=== PATIENT | female | born 1985 | race American Indian/Alaskan Native ===

== ENCOUNTER 2018-12-21 23:30 | Emergency (ER) | payer BC ==
[2018-12-21] MEDS ORDERED: ASPIRIN PO ONE (23:43)
--- NOTE | 2018-12-22 00:19 | XRay Report ---
CHEST 1 VIEW INDICATION / CLINICAL INFORMATION: Chest Pain. COMPARISON: None available. FINDINGS: SUPPORT DEVICES: None. HEART / MEDIASTINUM: No significant abnormality. LUNGS / PLEURA: No significant pulmonary or pleural abnormality. No pneumothorax. ADDITIONAL FINDINGS: No significant additional findings. IMPRESSION: 1. No acute findings. Signer Name: Jace Doan MD Signed: 12/22/2018 12:15 AM Workstation Name: [id number]
[2018-12-22 00:54] LABS: BUN/Creatinine Ratio 13; Blood Urea Nitrogen 10 mg/dL (7-17); Calcium 8.6 mg/dL (8.4-10.2); Hemolysis Index 9
[2018-12-22 00:57] LABS: Basophils # (Auto) 0.1 K/mm3 (0.0-0.1); Basophils % (Auto) 1.1 % (0.0-1.8); Eosinophils # (Auto) 0.1 K/mm3 (0.0-0.4); Eosinophils % (Auto) 2.4 % (0.0-4.3); Hematocrit 35.8 % (30.3-42.9); Hemoglobin 11.6 gm/dl (10.1-14.3); Lymphocytes # (Auto) 1.8 K/mm3 (1.2-5.4); Mean Corpuscular HGB Conc 32 % (30-34); Mean Corpuscular Volume 71 fl (79-97); Monocytes # (Auto) 0.5 K/mm3 (0.0-0.8); Monocytes % (Auto) 10.3 % (0.0-7.3); Platelet Count 243 K/mm3 (140-440); Red Blood Count 5.03 M/mm3 (3.65-5.03)
[2018-12-22] MEDS ORDERED: NACL 0.9% 1000 ML 1,000 ML IV ONE (01:10)
--- NOTE | 2018-12-22 01:10 | Emergency Department Report ---
HPI - General Chief Complaint: Arrhythmia/Palpitations Time Seen by Provider: 12/22/18 00:58 - HPI HPI: Room 17 The patient is a 33-year-old female presented with a chief complaint of palpitations. The patient states since noon she's had intermittent palpitations feel as though her heart is racing and sometimes skipping a beat. Patient admits to shortness of breath associated this symptom. Patient denies chest pain, cough, fever, nausea/vomiting, pleurisy or recent flights/long car trips. Patient denies previous episodes of same Location: [See above] Duration: [See above] Quality: [See above] Severity: [See above] Modifying factors: [see above] Context: [see above] Mode of transportation: [not driving] ED Past Medical Hx - Past Medical History Previous Medical History?: No - Surgical History Past Surgical History?: Yes Additional Surgical History: - Family History Family history: no significant - Social History Smoking Status: Never Smoker Substance Use Type: None (denies illicit drug use) ED Review of Systems ROS: Stated complaint: HEART RACING Other details as noted in HPI Constitutional: denies: diaphoresis Eyes: denies: eye pain ENT: denies: throat pain Respiratory: shortness of breath Cardiovascular: palpitations. denies: chest pain Endocrine: no symptoms reported Gastrointestinal: denies: abdominal pain, nausea, vomiting Genitourinary: denies: dysuria Musculoskeletal: denies: back pain Neurological: denies: headache Physical Exam - Physical Exam Vital Signs: Vital Signs 12/21/18 23:42 Temperature 98.1 F Pulse Rate 112 H Respiratory 18 Rate Blood Pressure 158/92 O2 Sat by Pulse 99 Oximetry Physical Exam: GENERAL: The patient is well-developed well-nourished female lying on stretcher not appear to be in acute distress. [] HEENT: Normocephalic. Atraumatic. Extraocular motions are intact. Patient has moist mucous membranes. NECK: Supple. Trachea midline CHEST/LUNGS: Clear to auscultation. There is no respiratory distress noted. HEART/CARDIOVASCULAR: Regular. There is tachycardia. There is no gallop rub or murmur. ABDOMEN: Abdomen is soft, nontender. Patient has normal bowel sounds. There is no abdominal distention. SKIN: There is no rash. There is no diaphoresis. NEURO: The patient is awake, alert, and oriented. The patient is cooperative. The patient has normal speech MUSCULOSKELETAL: There is no evidence of acute injury. ED Course Vital Signs 12/21/18 23:42 Temperature 98.1 F Pulse Rate 112 H Respiratory 18 Rate Blood Pressure 158/92 O2 Sat by Pulse 99 Oximetry ED Medical Decision Making - Lab Data Result diagrams: 12/22/18 00:06 12/22/18 00:06 Laboratory Tests 12/22/18 12/22/18 12/22/18 00:06 00:06 01:14 WBC 4.9 RBC 5.03 Hgb 11.6 Hct 35.8 MCV 71 L MCH 23 L MCHC 32 RDW 16.0 H Plt Count 243 Lymph % (Auto) 36.0 H [place] % (Auto) 10.3 H Eos % (Auto) 2.4 Baso % (Auto) 1.1 Lymph # 1.8 [place] # 0.5 Eos # 0.1 Baso # 0.1 Seg Neutrophils % 50.2 Seg Neutrophils # 2.5 D-Dimer 164.96 Sodium 138 Potassium 4.0 Chloride 102.6 Carbon Dioxide 27 Anion Gap 12 BUN 10 Creatinine 0.8 Estimated GFR > 60 BUN/Creatinine Ratio 13 Glucose 89 Calcium 8.6 Troponin T < 0.010 TSH Free T4 HCG, Qual 12/22/18 12/22/18 12/22/18 01:14 01:14 02:55 WBC RBC Hgb Hct MCV MCH MCHC RDW Plt Count Lymph % (Auto) [place] % (Auto) Eos % (Auto) Baso % (Auto) Lymph # [place] # Eos # Baso # Seg Neutrophils % Seg Neutrophils # D-Dimer Sodium Potassium Chloride Carbon Dioxide Anion Gap BUN Creatinine Estimated GFR BUN/Creatinine Ratio Glucose Calcium Troponin T < 0.010 TSH 1.240 Free T4 0.83 HCG, Qual Negative - EKG Data -: EKG Interpreted by Me EKG shows normal: sinus rhythm Rate: tachycardia (105 bpm) - EKG Data When compared to previous EKG there are: previous EKG unavailable Interpretation: other (no ischemic changes seen) - Radiology Data Radiology results: report reviewed (chest x-ray), image reviewed (chest x-ray) interpreted by me: Chest x-ray-no focal infiltrate, no pneumothorax [facility] [address] [place] [address] XRay Report Signed Patient: PRICILLA LÓPEZ MR#: [id number] : 1985 Acct:[id number] Age/Sex: 33 / F ADM Date: 12/21/18 Loc: ED Attending Dr: Ordering Physician: RUDDY URBANO MD Date of Service: 12/21/18 Procedure(s): XR chest 1V ap Accession Number(s): [id number] cc: ED MD YOLIE Fluoro Time In Minutes: CHEST 1 VIEW INDICATION / CLINICAL INFORMATION: Chest Pain. COMPARISON: None available. FINDINGS: SUPPORT DEVICES: None. HEART / MEDIASTINUM: No significant abnormality. LUNGS / PLEURA: No significant pulmonary or pleural abnormality. No pneumothorax. ADDITIONAL FINDINGS: No significant additional findings. IMPRESSION: 1. No acute findings. Signer Name: Jace Doan MD Signed: 12/22/2018 12:15 AM Workstation Name: [id number] Transcribed By: IGNACIO Dictated By: Jace Doan MD Electronically Authenticated By: Jace Doan MD Signed Date/Time: 12/22/1814 DD/ TD/TT: - Differential Diagnosis dehydration, dysrhythmia, hyperthyroidism, PE Critical care attestation.: If time is entered above; I have spent that time in minutes in the direct care of this critically ill patient, excluding procedure time. ED Disposition Clinical Impression: Palpitations Disposition: DC-01 TO HOME OR SELFCARE Is pt being admited?: No Does the pt Need Aspirin: No Condition: Stable Instructions: Palpitations (ED), Supraventricular Tachycardia (ED) Additional Instructions: Return to the emergency department immediately should you develop worsening symptoms, fever, inability to tolerate food or liquid or any other concerns. Referrals: PRIMARY CAREMD [Primary Care Provider] - 3-5 Days HARJEET TIDWELL MD [Staff Physician] - 3-5 Days (Dr. Tidwell is a plant nursery worker. Please follow up with him for further evaluation) Time of Disposition: 03:50
[2018-12-22] MEDS ORDERED: NACL 0.9% 1000 ML 1,000 ML ONE (01:12)
[2018-12-22 01:54] LABS: Free T4 (Free Thyroxine) 0.83 ng/dL (0.76-1.46)
[2018-12-22 02:22] VITALS: BP 130/77
== END 2018-12-22 04:00 | disposition home or self-care (01) ==
LOC: ED 23:30
DX: R00.2 Palpitations (principal)
CPT/HCPCS: 36415; 71045; 80048; 84439; 84443; 84484; 84703; 85025; 85379; 93005; 93010; 99284; J7030; 96375